=== PATIENT | male | born 1995 | race Caucasian/White ===

== ENCOUNTER 2018-03-06 19:38 | Emergency (ER) | payer OTHER ==
[2018-03-06 20:10] VITALS: BP 122/76
--- NOTE | 2018-03-06 20:45 | ED ---
Skin Complaint - HPI Summary HPI Summary: 22 yr old with redness to the dorsum of hand left. The patient complains of redness and pain and streaking redness up to the left mid bicep area. Onset 5 days ago and progressively worse. he states he put a small cut to the hand wondering if it needed to drain. He has had fever and chills, and a little nausea. No vomiting. No dizziness. Denies diabetes and smoking. He denies trauma or punching anything. - History of Current Complaint Chief Complaint: [place] Time Seen by Provider: 03/06/18 20:22 Stated Complaint: INFECTION LEFT HAND Pain Intensity: 10 - Allergy/Home Medications Allergies/Adverse Reactions: Allergies Allergy/AdvReac Type Severity Reaction Status Date / Time No Known Allergies Allergy Verified 12/02/16 20:44 Home Medications: Home Medications NK [No Home Medications Reported] 03/06/18 [History Confirmed 03/06/18] PMH/Surg Hx/FS Hx/Imm Hx Infectious Disease History: No Infectious Disease History: Denies: Traveled Outside the [place] in Last 30 Days - Family History Known Family History: Positive: None Negative: Diabetes - Social History Alcohol Use: Rare Substance Use Type: Reports: Marijuana Substance Use Comment - Amount & Last Used: daily Smoking Status (MU): Never Smoked Tobacco Review of Systems Positive: Fever, Chills Positive: Other - cellulitis hand All Other Systems Reviewed And Are Negative: Yes Physical Exam Triage Information Reviewed: Yes Vital Signs On Initial Exam: Initial Vitals Temp Pulse Resp BP Pulse Ox 100.1 F 80 16 122/76 98 03/06/18 20:05 03/06/18 20:05 03/06/18 20:05 03/06/18 20:05 03/06/18 20:05 Vital Signs Reviewed: Yes Appearance: Positive: Well-Appearing, No Pain Distress Skin: Positive: Other - left hand with redness dorsum of the hand and streaking up to the mid medial bicep area with lymphangitis. Tenderness. he has a small open area that he opened himself trying to drain something if possible over his left 5th MP area. Eyes: Positive: EOMI ENT: Positive: Normal ENT inspection Neck: Positive: Nontender Respiratory/Lung Sounds: Positive: Clear to Auscultation, Breath Sounds Present Cardiovascular: Positive: RRR. Negative: Murmur Musculoskeletal: Positive: Other - STS left hand with streaking up left arm to bicep Neurological: Positive: Sensory/Motor Intact, Alert, Oriented to Person Place, Time, CN Intact II-III Psychiatric: Positive: Normal - [place] Coma Scale Best Eye Response: 4 - Spontaneous Best Motor Response: 6 - Obeys Commands Best Verbal Response: 5 - Oriented Coma Scale Total: 15 Diagnostics - Vital Signs Vital Signs Temp Pulse Resp BP Pulse Ox 03/06/18 20:05 100.1 F 80 16 122/76 98 - Laboratory Lab Statement: Any lab studies that have been ordered have been reviewed, and results considered in the medical decision making process. Course/Dx - Course Course Of Treatment: 22 yrold wth cellulitis and lymphangitis. Recommend to ER for Labs as he is febrile and should get IV antibiotics. - Diagnoses Provider Diagnoses: Cellulitis of hand, left Discharge - Sign-Out/Discharge Documenting (check all that apply): Patient Departure - Discharge Plan Condition: Good Disposition: HOME-RECOMMEND TO ED Patient Education Materials: Cellulitis (ED) Referrals: No Primary Care Phys,NOPCP [Primary Care Provider] - [facility] [Outside] Additional Instructions: Go to the ER in [place] upon leaving here, and do not delay. - Billing Disposition and Condition Condition: GOOD Disposition: Home-Recommend to ED
== END 2018-03-06 20:44 | disposition home health service (06) ==
LOC: UCCORT 19:38
DX: L03.114 Cellulitis of left upper limb (principal)
CPT/HCPCS: 99212; G0463